=== PATIENT | male | born 1970 | race Caucasian/White ===

== ENCOUNTER 2017-01-29 22:00 | Emergency (ER) | payer MEDICAID ==
[~2017-01-29] VITALS: Ht 180.3 cm; Wt 88.5 kg
[2017-01-29 22:17] VITALS: BP 139/91
== END 2017-01-30 00:18 | disposition left against medical advice (07) ==
LOC: ER 22:00
DX: K08.89 Other specified disorders of teeth and supporting structures (principal); Z53.21 Procedure and treatment not carried out due to patient leaving prior to being seen by health care provider

== ENCOUNTER 2017-08-20 08:56 | Inpatient (IN) | payer MEDICAID, OTHER ==
[~2017-08-20] VITALS: Ht 182.9 cm; Wt 90.2 kg
[2017-08-20 09:41] LABS: Basophils # (auto) 0.1 uL; Basophils % (auto) 0.5 % (0.0-2.0); Eosinophils # (auto) 0.2 uL; Eosinophils % (auto) 1.4 % (0.0-7.0); Hematocrit 44.3 % (41.0-53.0); Lymphocytes # (auto) 1.8 uL; Lymphocytes % (auto) 15.1 % (10.0-50.0); Mean Corpuscular Hemoglobin 30.1 pg (28.0-32.0); Mean Corpuscular Hgb Conc. 33.9 g/dL (32.0-36.0); Mean Corpuscular Volume 88.7 fL (80.0-100.0); Monocytes # (auto) 0.7 uL; Monocytes % (auto) 6.3 % (0.0-12.0); Neutrophils # (auto) 9.2 uL; Neutrophils % (auto) 76.7 % (37.0-80.0); Nucleated Red Blood Cells % 0.1 %; Platelet Count (auto) 350 10^3/uL (140-450); Red Cell Distribution Width 13.6 % (11.8-14.3); White Blood Cell 11.9 10^3/uL (4.4-10.8)
[2017-08-20 09:46] LABS: Urine Bacteria NONE SEEN /hpf (None Seen); Urine Blood TRACE /uL (Negative); Urine Mucus FEW (None Seen); Urine Specific Gravity 1.028 (1.001-1.035); Urine WBC 3 /hpf (0 - 3)
[2017-08-20 10:05] LABS: Albumin 3.2 g/dL (3.4-5.0); Bilirubin, Total 0.3 mg/dL (0.2-1.0); Calcium 8.2 mg/dL (8.5-10.1); Potassium 3.9 mmol/L (3.5-5.1); Total Protein 6.9 g/dL (6.4-8.2)
[2017-08-20] MEDS ORDERED: SODIUM CHLORIDE 0.9% 1,000 ML IVB ONE (11:44)
[2017-08-20] MEDS ORDERED: ONDANSETRON HCL 4 MG/2 ML VIAL IV ONE (11:45)
[2017-08-20 12:19] LABS: INR 0.93 (0.9-1.15); Partial Thromboplastin Time 29.4 sec (23.78-33.04)
[2017-08-20] MEDS ORDERED: PANTOPRAZOLE 40 MG/10 ML VIAL IV ONE ×2 (19:15→19:30)
[2017-08-20] MEDS ORDERED: NALBUPHINE HCL 10 MG/1ml INJECTION IV ONE (19:15)
[2017-08-20] MEDS ORDERED: ACETAMINOPHEN 500 MG TAB PO PRN (19:30)
[2017-08-20] MEDS ORDERED: HYDROcodone-ACET 5/325MG TAB PO PRN (19:30)
[2017-08-20] MEDS ORDERED: cefTRIAXone 1GM/10ml IVPUSH 10 ML IV ONE (19:30)
[2017-08-20] MEDS ORDERED: MORPHINE SULF(PF) 0.5MG/ML 10ML VIAL IV PRN (19:30)
[2017-08-20] MEDS ORDERED: LORazepam 0.5 MG TAB PO PRN (19:30)
[2017-08-20] MEDS ORDERED: MORPHINE SULFATE 8mg/ml INJ SDV IV PRN (19:30)
[2017-08-20] MEDS ORDERED: NITROGLYCERIN 0.4 MG SL TAB SL PRN (19:30)
[2017-08-20] MEDS ORDERED: TEMAZEPAM 15 MG CAP PO PRN (19:30)
[2017-08-20 22:00] VITALS: BP 118/73
[2017-08-20 22:37] VITALS: BP 118/73
[2017-08-20] MEDS: metroNIDAZOLE 500MG/100ML 100 ML IV SCH (23:56)
[2017-08-21 01:01] LABS: Hematocrit 41.4 % (41.0-53.0); Hemoglobin 14.1 g/dL (13.5-17.5)
[2017-08-21] MEDS: NALBUPHINE HCL 10 MG/1ml INJECTION IV PRN ×4 (01:12→22:12)
[2017-08-21 05:28] LABS: Basophils # (auto) 0 uL; Basophils % (auto) 0.3 % (0.0-2.0); Eosinophils # (auto) 0.2 uL; Eosinophils % (auto) 1.7 % (0.0-7.0); Hematocrit 40.7 % (41.0-53.0); Hemoglobin 14.3 g/dL (13.5-17.5); Lymphocytes # (auto) 2.1 uL; Lymphocytes % (auto) 19.1 % (10.0-50.0); Mean Corpuscular Hemoglobin 31.3 pg (28.0-32.0); Mean Corpuscular Hgb Conc. 35.1 g/dL (32.0-36.0); Mean Corpuscular Volume 89.2 fL (80.0-100.0); Monocytes # (auto) 0.9 uL; Monocytes % (auto) 8.1 % (0.0-12.0); Neutrophils # (auto) 7.7 uL; Neutrophils % (auto) 70.8 % (37.0-80.0); Nucleated Red Blood Cells % 0.1 %; Platelet Count (auto) 318 10^3/uL (140-450); Red Blood Cells 4.56 10^6/uL (4.5-5.90); Red Cell Distribution Width 13.6 % (11.8-14.3); White Blood Cell 10.9 10^3/uL (4.4-10.8)
[2017-08-21 05:31] VITALS: BP 129/84
[2017-08-21 05:40] LABS: Cholesterol 100 mg/dL (< 200); HDL Cholesterol 23 mg/dL (40-59); LDL Cholesterol 62 mg/dL (< 100); Triglycerides 206 mg/dL (< 150)
[2017-08-21] MEDS: metroNIDAZOLE 500MG/100ML 100 ML IV SCH ×3 (06:04→18:03)
[2017-08-21] MEDS: PROMETHAZINE HCL 25 MG/ML 1ML IV PRN ×2 (08:44→14:49)
[2017-08-21] MEDS ORDERED: HYDROcodone-ACET 10/325MG TAB PO ONE (08:45)
[2017-08-21 09:00] VITALS: BP 126/76
[2017-08-21] MEDS: cefTRIAXone 1GM/10ml IVPUSH 10 ML IV SCH (09:42)
[2017-08-21] MEDS: PANTOPRAZOLE 40 MG TAB PO SCH ×2 (09:44→22:12)
[2017-08-21] MEDS: HYDROcodone-ACET 10/325MG TAB PO PRN ×3 (11:52→20:56)
[2017-08-21 12:13] LABS: Hematocrit 42.1 % (41.0-53.0); Hemoglobin 14.3 g/dL (13.5-17.5)
[2017-08-21 13:00] VITALS: BP 117/85
[2017-08-21] MEDS ORDERED: CARISOPRODOL 350 MG TAB PO ONE (16:45)
[2017-08-21 16:58] VITALS: BP 129/81
[2017-08-21 20:12] VITALS: BP 113/73
[2017-08-21 22:00] VITALS: BP 113/73
[2017-08-22] MEDS: metroNIDAZOLE 500MG/100ML 100 ML IV SCH ×4 (00:13→18:12)
[2017-08-22 05:26] VITALS: BP 148/83
[2017-08-22] MEDS: NALBUPHINE HCL 10 MG/1ml INJECTION IV PRN ×5 (05:27→21:03)
[2017-08-22 06:11] LABS: Basophils # (auto) 0.1 uL; Basophils % (auto) 0.7 % (0.0-2.0); Eosinophils # (auto) 0.3 uL; Eosinophils % (auto) 2.2 % (0.0-7.0); Hematocrit 40.8 % (41.0-53.0); Hemoglobin 14.3 g/dL (13.5-17.5); Lymphocytes # (auto) 2.1 uL; Lymphocytes % (auto) 18.2 % (10.0-50.0); Mean Corpuscular Hemoglobin 30.9 pg (28.0-32.0); Mean Corpuscular Volume 88.4 fL (80.0-100.0); Monocytes # (auto) 0.7 uL; Monocytes % (auto) 6.5 % (0.0-12.0); Neutrophils # (auto) 8.4 uL; Neutrophils % (auto) 72.4 % (37.0-80.0); Platelet Count (auto) 318 10^3/uL (140-450); Red Blood Cells 4.61 10^6/uL (4.5-5.90); Red Cell Distribution Width 13.4 % (11.8-14.3); White Blood Cell 11.6 10^3/uL (4.4-10.8)
[2017-08-22 06:44] LABS: Albumin 2.7 g/dL (3.4-5.0); BUN/Creatinine Ratio 10.3; Bilirubin, Total 0.4 mg/dL (0.2-1.0); Calcium 8.1 mg/dL (8.5-10.1); Potassium 3.5 mmol/L (3.5-5.1); Total Protein 6.2 g/dL (6.4-8.2)
[2017-08-22 08:00] VITALS: BP 144/91
[2017-08-22] MEDS: PANTOPRAZOLE 40 MG TAB PO SCH ×2 (10:03→21:03)
[2017-08-22] MEDS: cefTRIAXone 1GM/10ml IVPUSH 10 ML IV SCH (10:04)
[2017-08-22] MEDS: HYDROcodone-ACET 10/325MG TAB PO PRN ×2 (10:04→18:16)
[2017-08-22 17:00] VITALS: BP 129/79
[2017-08-22 20:00] VITALS: BP 128/83
[2017-08-22] MEDS ORDERED: MORPHINE SULFATE 4 MG/ML SYR/VIAL IV PRN (20:45)
[2017-08-22 22:25] VITALS: BP 128/83
[2017-08-23] MEDS: metroNIDAZOLE 500MG/100ML 100 ML IV SCH ×4 (00:16→17:55)
[2017-08-23] MEDS: HYDROcodone-ACET 10/325MG TAB PO PRN ×3 (02:23→17:04)
[2017-08-23] MEDS: NALBUPHINE HCL 10 MG/1ml INJECTION IV PRN ×3 (04:24→20:19)
[2017-08-23 04:37] VITALS: BP 161/86
[2017-08-23 06:38] LABS: Basophils # (auto) 0.1 uL; Basophils % (auto) 0.7 % (0.0-2.0); Eosinophils # (auto) 0.2 uL; Eosinophils % (auto) 2.6 % (0.0-7.0); Hematocrit 41.1 % (41.0-53.0); Hemoglobin 14.4 g/dL (13.5-17.5); Lymphocytes % (auto) 23.6 % (10.0-50.0); Mean Corpuscular Hemoglobin 30.8 pg (28.0-32.0); Mean Corpuscular Volume 88.1 fL (80.0-100.0); Monocytes # (auto) 0.7 uL; Neutrophils # (auto) 5.5 uL; Neutrophils % (auto) 65.1 % (37.0-80.0); Platelet Count (auto) 321 10^3/uL (140-450); Red Blood Cells 4.67 10^6/uL (4.5-5.90); Red Cell Distribution Width 13.4 % (11.8-14.3); White Blood Cell 8.4 10^3/uL (4.4-10.8)
[2017-08-23 07:27] LABS: Albumin 2.9 g/dL (3.4-5.0); Bilirubin, Total 0.2 mg/dL (0.2-1.0); Calcium 8.5 mg/dL (8.5-10.1); Potassium 3.9 mmol/L (3.5-5.1); Total Protein 6.5 g/dL (6.4-8.2)
[2017-08-23 08:00] VITALS: BP 121/86
[2017-08-23 09:00] VITALS: BP 121/86
[2017-08-23] MEDS: PANTOPRAZOLE 40 MG TAB PO SCH ×2 (10:03→22:01)
[2017-08-23] MEDS: cefTRIAXone 1GM/10ml IVPUSH 10 ML IV SCH (10:03)
[2017-08-23 13:00] VITALS: BP 122/75
[2017-08-23 17:00] VITALS: BP 147/86
[2017-08-23 22:00] VITALS: BP 118/70
[2017-08-24] MEDS: metroNIDAZOLE 500MG/100ML 100 ML IV SCH ×3 (00:01→13:51)
[2017-08-24] MEDS: NALBUPHINE HCL 10 MG/1ml INJECTION IV PRN ×2 (02:08→09:14)
[2017-08-24 05:00] VITALS: BP 137/78
[2017-08-24 06:16] LABS: INR 0.96 (0.9-1.15); Partial Thromboplastin Time 28.6 sec (23.78-33.04); Prothrombin Time 10.3 sec (9.27-12.13)
[2017-08-24] MEDS ORDERED: SODIUM CHLORIDE LOCK 10 ML ONE (08:22)
[2017-08-24] MEDS ORDERED: LIDOCAINE VISCOUS 2% 15ML UD ONE (08:22)
[2017-08-24] MEDS ORDERED: diphenhdrAMINE HCL 50 MG/1 ML VL ONE (08:23)
[2017-08-24 09:00] VITALS: BP 133/78
[2017-08-24] MEDS: cefTRIAXone 1GM/10ml IVPUSH 10 ML IV SCH (09:18)
[2017-08-24] MEDS: MIDAZOLAM HCL 5 MG/ML-1ML VIAL ONE ×2 (12:33→12:36)
[2017-08-24] MEDS: fentaNYL CITRATE 100 MCG/2 ML VL ONE ×2 (12:33→12:36)
[2017-08-24 12:43] LABS: Basophils # (auto) 0 uL; Basophils % (auto) 0.5 % (0.0-2.0); Eosinophils # (auto) 0.2 uL; Eosinophils % (auto) 2.1 % (0.0-7.0); Hematocrit 43.3 % (41.0-53.0); Lymphocytes # (auto) 1.9 uL; Lymphocytes % (auto) 21.7 % (10.0-50.0); Mean Corpuscular Hemoglobin 30.8 pg (28.0-32.0); Mean Corpuscular Hgb Conc. 34.7 g/dL (32.0-36.0); Mean Corpuscular Volume 88.8 fL (80.0-100.0); Monocytes # (auto) 0.5 uL; Monocytes % (auto) 5.6 % (0.0-12.0); Neutrophils # (auto) 6.2 uL; Neutrophils % (auto) 70.1 % (37.0-80.0); Platelet Count (auto) 371 10^3/uL (140-450); Red Blood Cells 4.87 10^6/uL (4.5-5.90); Red Cell Distribution Width 13.5 % (11.8-14.3); White Blood Cell 8.8 10^3/uL (4.4-10.8)
[2017-08-24 13:00] VITALS: BP 135/92
[2017-08-24] MEDS: PANTOPRAZOLE 40 MG TAB PO SCH (13:21)
[2017-08-24 13:24] LABS: BUN/Creatinine Ratio 13.5; Calcium 8.8 mg/dL (8.5-10.1)
[2017-08-24 14:25] VITALS: BP 135/92
== END 2017-08-24 16:40 | disposition home or self-care (01) | DRG 241 ==
LOC: ER 08:56 → TELE 08:57 → TELE-WESTW 22:00
PROVIDERS: ADMIT Internal Medicine; ATTEND Internal Medicine
PROC: 0DB68ZX Excision of Stomach, Via Natural or Artificial Opening Endoscopic, Diagnostic (ICD-10-PCS; principal; 2017-08-24 12:30)
DX: K29.71 Gastritis, unspecified, with bleeding (principal); E44.0 Moderate protein-calorie malnutrition; K27.4 Chronic or unspecified peptic ulcer, site unspecified, with hemorrhage; B19.20 Unspecified viral hepatitis C without hepatic coma; D72.829 Elevated white blood cell count, unspecified; E78.5 Hyperlipidemia, unspecified; F17.210 Nicotine dependence, cigarettes, uncomplicated; K40.20 Bilateral inguinal hernia, without obstruction or gangrene, not specified as recurrent; F41.9 Anxiety disorder, unspecified; G47.00 Insomnia, unspecified; K29.81 Duodenitis with bleeding; Z68.27 Body mass index [BMI] 27.0-27.9, adult; Z82.49 Family history of ischemic heart disease and other diseases of the circulatory system
CPT/HCPCS: 36415; 71045; 71046; 74176; 80048; 80053; 80061; 81001; 82150; 82270; 82378; 83690; 83735; 85014; 85018; 85025; 85045; 85610; 85652; 85730; 86141; 86850; 86900; 86901; 87493; 94761; 96361; 96374; 96375; 96376; C9113; J2250; J2405; J3490

== ENCOUNTER 2022-03-09 06:38 | Inpatient (IN) | payer MEDICAID ==
[~2022-03-09] VITALS: Ht 180.3 cm; Wt 102.0 kg
[2022-03-09 07:27] LABS: Basophils # (auto) 0.1 10 ^3/uL (0-0.2); Basophils % (auto) 0.9 % (0.0-2.0); Eosinophils # (auto) 0.3 10 ^3/uL (0-0.8); Eosinophils % (auto) 2.3 % (0.0-7.0); Hematocrit 37.4 % (41.0-53.0); Hemoglobin 12.9 g/dL (13.5-17.5); Lymphocytes # (auto) 1.2 10 ^3/uL (0.4-5.4); Lymphocytes % (auto) 9.6 % (10.0-50.0); Mean Corpuscular Hemoglobin 29.7 pg (28.0-32.0); Mean Corpuscular Hgb Conc. 34.5 g/dL (32.0-36.0); Mean Corpuscular Volume 86.2 fL (80.0-100.0); Monocytes # (auto) 0.7 10 ^3/uL (0-1.3); Monocytes % (auto) 5.8 % (0.0-12.0); Neutrophils # (auto) 10.4 10 ^3/uL (1.6-8.6); Neutrophils % (auto) 81.4 % (37.0-80.0); Red Blood Cells 4.34 10^6/uL (4.5-5.90); Red Cell Distribution Width 13.4 % (11.8-14.3); White Blood Cell 12.8 10^3/uL (4.4-10.8)
[2022-03-09 07:44] LABS: INR 0.99 (0.9-1.15); Partial Thromboplastin Time 38.4 sec (24.6-33.4)
[2022-03-09 08:04] LABS: Albumin 3.2 g/dL (3.4-5.0); BUN/Creatinine Ratio 9.8; Calcium 9.3 mg/dL (8.5-10.1); Potassium 4.4 mmol/L (3.5-5.1)
[2022-03-09 08:06] LABS: Bilirubin, Total 0.6 mg/dL (0.2-1.0); Total Protein 7.7 g/dL (6.4-8.2)
[2022-03-09] MEDS ORDERED: IOHEXOL 300 MG/ML 100ML BOTTLE IJ ONE (08:49)
[2022-03-09 09:01] LABS: Magnesium 2.1 mg/dL (1.6-2.6)
[2022-03-09] MEDS ORDERED: cefTRIAXone 1GM/50ML D5W 50 ML IV ONE (13:30)
[2022-03-09] MEDS ORDERED: metroNIDAZOLE 500MG/100ML 100 ML IV ONE (13:30)
[2022-03-09] MEDS ORDERED: NITROGLYCERIN 0.4 MG SL TAB SL PRN (14:00)
[2022-03-09] MEDS ORDERED: ALBUTEROL SULF 2.5 MG/0.5ML(0.5%) NEB SOLN NEB PRN (14:00)
[2022-03-09] MEDS ORDERED: MORPHINE SULFATE INJ 2 MG/ml SYRG IV PRN (14:00)
[2022-03-09] MEDS ORDERED: ACETAMINOPHEN 325 MG TAB PO PRN (14:00)
[2022-03-09] MEDS: HYDROcodone-ACET 5/325MG TAB PO PRN (15:41)
[2022-03-09] MEDS: ALBUTEROL MEDNEB 2.5 mg/3ml NEB NEB PRN (21:17)
[2022-03-09] MEDS: MORPHINE SULFATE INJ 2 MG/ml SYRG IV PRN (23:54)
[2022-03-10 04:54] LABS: Basophils # (auto) 0 10 ^3/uL (0-0.2); Basophils % (auto) 0.4 % (0.0-2.0); Eosinophils # (auto) 0.2 10 ^3/uL (0-0.8); Eosinophils % (auto) 1.4 % (0.0-7.0); Hematocrit 36.3 % (41.0-53.0); Hemoglobin 12.8 g/dL (13.5-17.5); Lymphocytes # (auto) 1.3 10 ^3/uL (0.4-5.4); Lymphocytes % (auto) 12.1 % (10.0-50.0); Mean Corpuscular Hemoglobin 30.3 pg (28.0-32.0); Mean Corpuscular Hgb Conc. 35.3 g/dL (32.0-36.0); Mean Corpuscular Volume 85.8 fL (80.0-100.0); Monocytes # (auto) 0.6 10 ^3/uL (0-1.3); Neutrophils # (auto) 8.9 10 ^3/uL (1.6-8.6); Neutrophils % (auto) 81.1 % (37.0-80.0); Nucleated Red Blood Cells % 0.1 %; Red Blood Cells 4.23 10^6/uL (4.5-5.90); Red Cell Distribution Width 13.7 % (11.8-14.3)
[2022-03-10 05:10] LABS: Calcium 8.9 mg/dL (8.5-10.1); Potassium 4.1 mmol/L (3.5-5.1)
[2022-03-10 05:12] LABS: BUN/Creatinine Ratio 11.3
[2022-03-10 05:14] LABS: Bilirubin, Total 0.6 mg/dL (0.2-1.0); Total Protein 7.2 g/dL (6.4-8.2)
[2022-03-10] MEDS: MORPHINE SULFATE INJ 2 MG/ml SYRG IV PRN ×2 (07:10→16:56)
[2022-03-10] MEDS: HYDROcodone-ACET 5/325MG TAB PO PRN (09:40)
[2022-03-10] MEDS: ENOXAPARIN SOD 40 MG/0.4 ML SYRINGE SC SCH (09:40)
[2022-03-10] MEDS: PANTOPRAZOLE 40 MG TAB PO SCH (09:41)
[2022-03-10] MEDS: AZITHROMYCIN 500MG/ 250ML 250 ML IV SCH (10:46)
[2022-03-10] MEDS: HYDROmorphone HCL 2 MG/ML VL/or syr IV PRN ×2 (12:57→23:29)
[2022-03-10 13:53] VITALS: BP 141/70
[2022-03-10 17:00] VITALS: BP 126/73
[2022-03-10 17:12] VITALS: BP 136/69
[2022-03-10] MEDS ORDERED: LOSA-69 PO (17:27)
[2022-03-10 22:00] VITALS: BP 149/94
[2022-03-11] MEDS: MORPHINE SULFATE INJ 2 MG/ml SYRG IV PRN (01:50)
[2022-03-11 05:00] VITALS: BP 132/91
[2022-03-11 07:50] VITALS: BP 157/82
[2022-03-11] MEDS ORDERED: MEPERIDINE HCL (25 MG/ML) 1ML VIAL ONE (08:10)
[2022-03-11] MEDS ORDERED: ROCURONIUM 10MG/ML 10ML VIAL IV ONE (08:11)
[2022-03-11] MEDS ORDERED: DexAMETHasone SOD PHOS 10MG/1ML VIAL INJ ONE (08:11)
[2022-03-11] MEDS ORDERED: ONDANSETRON HCL 4 MG/2 ML VIAL ONE (08:11)
[2022-03-11] MEDS ORDERED: GLYCOPYRROLATE 0.2 MG/ML 1ML VIAL ONE (08:11)
[2022-03-11] MEDS ORDERED: fentaNYL CITRATE 100 MCG/2 ML VL ONE (08:11)
[2022-03-11] MEDS ORDERED: MIDAZOLAM HCL 2MG/2ML 2ml VIAL (1mg/ml) ONE (08:11)
[2022-03-11] MEDS ORDERED: NEOSTIGMINE 1 MG/ML INJ (10mg/10ML VIAL) ONE (08:11)
[2022-03-11] MEDS ORDERED: SODIUM CHLORIDE LOCK 10 ML ONE (08:11)
[2022-03-11] MEDS ORDERED: ceFAZolin 1GM/50ML 100 ML IV ONE (08:36)
[2022-03-11] MEDS ORDERED: BUPIVACAINE 0.25% INJ 50ML VIAL ONE (08:43)
[2022-03-11] MEDS ORDERED: ALBUTEROL SULF 2.5 MG/0.5ML(0.5%) NEB SOLN NEB ONE (09:00)
[2022-03-11] MEDS ORDERED: IPRATROPIUM BROM 0.5 MG/2.5ML INH SOL NEB ONE (09:00)
[2022-03-11] MEDS ORDERED: HYDROmorphone HCL 2 MG/ML VL/or syr IV PRN ×2 (09:00)
[2022-03-11] MEDS ORDERED: MORPHINE SULFATE INJ 2 MG/ml SYRG IV PRN (09:00)
[2022-03-11] MEDS ORDERED: METOCLOPRAMIDE HCL 5MG/ml INJ 2ml VIAL IV PRN (09:00)
[2022-03-11] MEDS: AZITHROMYCIN 500MG/ 250ML 250 ML IV SCH ×2 (10:00→14:55)
[2022-03-11] MEDS: ENOXAPARIN SOD 40 MG/0.4 ML SYRINGE SC SCH (10:00)
[2022-03-11] MEDS: PANTOPRAZOLE 40 MG TAB PO SCH ×2 (10:00→14:56)
[2022-03-11] MEDS ORDERED: POVIDONE IODINE 10 % TOPICAL OINT 30GM TOP ONE (10:32)
[2022-03-11] MEDS ORDERED: HYDROmorphone HCL 2 MG/ML VL/or syr IV ONE ×2 (11:13→11:23)
[2022-03-11] MEDS: HYDROmorphone HCL 2 MG/ML VL/or syr IV PRN ×2 (13:39→21:03)
[2022-03-11 14:00] VITALS: BP 134/93
[2022-03-11 17:00] VITALS: BP 107/86
[2022-03-11 22:00] VITALS: BP 118/68
[2022-03-12] MEDS: HYDROmorphone HCL 2 MG/ML VL/or syr IV PRN ×5 (01:52→23:15)
[2022-03-12] MEDS ORDERED: HYDROmorphone HCL 2 MG/ML VL/or syr IV ONE (04:10)
[2022-03-12 05:00] VITALS: BP 134/87
[2022-03-12] MEDS: PANTOPRAZOLE 40 MG TAB PO SCH (09:42)
[2022-03-12] MEDS: AZITHROMYCIN 500MG/ 250ML 250 ML IV SCH (09:43)
[2022-03-12] MEDS: HYDROcodone-ACET 5/325MG TAB PO PRN ×3 (09:43→19:50)
[2022-03-12] MEDS: ENOXAPARIN SOD 40 MG/0.4 ML SYRINGE SC SCH (09:50)
[2022-03-12 10:05] VITALS: BP 136/71
[2022-03-12] MEDS: ALBUTEROL MEDNEB 2.5 mg/3ml NEB NEB PRN (10:22)
[2022-03-12 13:00] VITALS: BP 118/71
[2022-03-12 16:30] VITALS: BP 156/79
[2022-03-12 22:00] VITALS: BP 139/80
[2022-03-13] MEDS: HYDROcodone-ACET 5/325MG TAB PO PRN ×3 (01:34→14:44)
[2022-03-13] MEDS: HYDROmorphone HCL 2 MG/ML VL/or syr IV PRN ×3 (03:35→12:15)
[2022-03-13 09:00] VITALS: BP 158/115
[2022-03-13] MEDS: PANTOPRAZOLE 40 MG TAB PO SCH (09:33)
[2022-03-13] MEDS: AZITHROMYCIN 500MG/ 250ML 250 ML IV SCH (09:33)
[2022-03-13] MEDS: ENOXAPARIN SOD 40 MG/0.4 ML SYRINGE SC SCH (09:34)
[2022-03-13] MEDS: ALBUTEROL MEDNEB 2.5 mg/3ml NEB NEB PRN (12:14)
[2022-03-13 13:00] VITALS: BP 146/85
[2022-03-13] MEDS ORDERED: HYDR-4902 PO (13:08)
[2022-03-13 14:00] VITALS: BP 146/85
== END 2022-03-13 16:12 | disposition home or self-care (01) | DRG 227 ==
LOC: ER 06:38 → TELE 13:48 → TELE-WESTW 03-10 15:20
PROVIDERS: ADMIT Nurse Practitioner; ATTEND Nurse Practitioner
PROC: 0WQF0ZZ Repair Abdominal Wall, Open Approach (ICD-10-PCS; principal; 2022-03-11 09:18)
DX: K43.6 Other and unspecified ventral hernia with obstruction, without gangrene (principal); J18.9 Pneumonia, unspecified organism; K40.20 Bilateral inguinal hernia, without obstruction or gangrene, not specified as recurrent; Z20.822 Contact with and (suspected) exposure to COVID-19; F17.210 Nicotine dependence, cigarettes, uncomplicated; I10 Essential (primary) hypertension; K76.0 Fatty (change of) liver, not elsewhere classified; J45.909 Unspecified asthma, uncomplicated; R91.1 Solitary pulmonary nodule
CPT/HCPCS: 36415; 71045; 74177; 80053; 83605; 83690; 83735; 83880; 84484; 85025; 85610; 85730; 86850; 86900; 86901; 87040; 87426; 88302; 93005; 94640; 96365; 96367; 96372; 96375; G0378; J0690; J0696; J1100; J2250; J2405; J3490

== ENCOUNTER 2024-06-12 01:16 | Emergency (ER) | payer MEDICAID ==
[~2024-06-12] VITALS: Ht 180.3 cm; Wt 90.9 kg
[~2024-06-12 01:16] MED LIST: HYDR-4902 PO; LOSA-534 PO
[2024-06-12] MEDS ORDERED: CLON0.2T PO (01:45)
--- NOTE | 2024-06-12 01:46 | ED.PDOC ---
History of Present Illness HPI Comments This patient is a 54-year-old male who has been seen at this facility multiple times for fentanyl overdose who arrives tonight status post fentanyl overdose. EMS stated they arrived with the scene to the patient was unresponsive. Multiple rounds of Narcan and Zofran were dispensed. Patient responded. At ti me of arrival, patient was stable and non combative. Patient was hypertensive on arrival. Chief Complaint: Overdose Time Seen by MD: 01:24 Reviewed Notes: Nurses Notes, Appeals Coordinator Notes Allergies: Coded Allergies: NO KNOWN ALLERGIES (Unverified , 01/29/17) Home Meds Active Scripts Hydrocodone-Acetaminophen (Hydrocodone Bitartrate/AC 5-325 mg) 1 Tab Tab, 1 TAB PO Q4HP PRN for 5 Days, #25 TAB Prov:AMIRA MERA FILENET DEVELOPER 03/13/22 Reported Medications Losartan Potassium (Losartan Potassium) 50 Mg Tab, 1 TAB PO BID 03/10/22 Information Source: Patient, Emergency Med Personnel Mode of Arrival: EMS Severity: Moderate Timing: Minutes Duration: Hours Prehospital treatment: Treatment Past Medical History PAST MEDICAL HISTORY: HTN, Liver Surgical History: Denies all surgeries Family History Family History: No family hx of HTN Social History Smoker: Cigarettes, Less Than 1 Pack/Day Alcohol: Occasionally Drugs: Marijuana, Methamphetamine, Other (Fentanyl) Lives In: Home Constitutional: denies: chills, diaphoresis, fatigue, fever, malaise, sweats, weakness, others EENTM: denies: blurred vision, double vision, ear bleeding, ear discharge, ear drainage, ear pain, ear ringing, eye pain, eye redness, hearing loss, mouth pain, mouth swelling, nasal discharge, nose bleeding, nose congestion, nose pain, photophobia, tearing, throat pain, throat swelling, voice changes, others Respiratory: denies: cough, hemoptysis, orthopnea, SOB at rest, shortness of breath, SOB with excertion, stridor, wheezing, others Cardiovascular: denies: chest pain, dizzy spells, diaphoresis, Dyspnea on exertion, edema, irregular heart beat, left arm pain, lightheadedness, palpitations, PND, syncope, others Gastrointestinal: denies: abdomen distended, abdominal pain, blood streaked bowels, constipated, diarrhea, dysphagia, difficulty swallowing, hematemesis, melena, nausea, poor appetite, poor fluid intake, rectal bleeding, rectal pain, vomiting, others Genitourinary: denies: burning, dysuria, flank pain, frequency, hematuria, incontinence, penile discharge, penile sore, pain, testicle pain, testicle swelling, urgency, others Neurological: denies: dizziness, fainting, headache, left sided numbness, left sided weakness, numbness, paresthesia, pre-existing deficit, right sided numbness, right sided weakness, seizure, speech problems, tingling, tremors, weakness, others Musculoskeletal: denies: back pain, gout, joint pain, joint swelling, muscle p ain, muscle stiffness, neck pain, others Integumetry: denies: bruises, change in color, change in hair/nails, dryness, laceration, lesions, lumps, rash, wounds, others Allergic/Immunocompromised: denies: Difficulty Healing, Frequent Infections, Hives, Itching, others Hematologic/Lymphatic: denies: anemia, blood clots, easy bleeding, easy bruising, swollen glands, others Endocrine: denies: excessive hunger, excessive sweating, excessive thirst, excessive urination, flushing, intolerance to cold, intolerance to heat, unexplained weight gain, unexplained weight loss, others Psychiatric: denies: anxiety, bipolar disorder, depression, hopeless, panic disorder, schizophrenia, sleepless, suicidal, others Physical Exam General Appearance: No Apparent Distress (Patient was in no distress at time of evaluation.), Normal HEENT: Normal ENT Inspection, Pharynx Normal, TMs Normal Neck: Full Range of Motion, Non-Tender, Normal, Normal Inspection Respiratory: Chest Non-Tender, Lungs Clear, No Accessory Muscle Use, No Respiratory Distress, Normal Breath Sounds Cardiovascular: No Edema, No JVD, No Murmur, No Gallop, Normal Peripheral Pulses, Regular Rate/Rhythm Breast Exam: Deferred Gastrointestinal: No Organomegaly, Non Tender, No Pulsatile Mass, Normal Bowel Sounds, Soft Genitalia: Deferred Pelvic: Deferred Rectal: Deferred Extremities: NOT DONE Neurologic: Alert, No Motor Deficits, No Sensory Deficits Cerebellar Function: NOT DONE Reflexes: NOT DONE Skin: Dry, Normal Color, Warm Lymphatic: No Adenopathy Was a procedure done? Was a procedure done?: No Differential Dx Considerations may include: Fentanyl overdose, hypertension X-Ray, Labs, Meds, VS Vital Signs Date Time Temp Pulse Resp B/P (MAP) Pulse Ox O2 Delivery O2 Flow Rate FiO2 06/12/24 01:25 98.2 118 20 183/108 (133) 95 98.2 X-Ray, Labs, Meds, VS Comment Patient received fluids and medication to address his blood pressure concerns. Patient's blood pressure will be allowed to returned to an acceptable range prior to discharge. Patient has been advised to cease fentanyl use immediately and follow up with a support groups such as narcotics anonymous. This is a, advised patient to follow up with the primary care provider for discussions related to possible hypertensive concerns. Time of 1ST Reevaluation: Reevaluation 1ST: Improved Consultation: PCP, Other (Drug rehab) Patient Education/Counseling: Diagnosis, Treatment Family Education/Counseling: Diagnosis, Treatment Departure 1 Departure Time of Disposition: Impression: Primary Impression: Overdose of fentanyl Additional Impression: Hypertension Disposition: HOME / SELF CARE / HOMELESS Condition: Stable Additional Instructions: Advised patient utilize medication as needed for symptomatic blood pressure relief. Advised patient to cease fentanyl use immediately and follow up with a support programs such as narcotics anonymous. e-Prescriptions Clonidine Hydrochloride (Clonidine Hcl) 0.2 Mg Tab 1 TAB PO BID, #20 TAB 0 Refills Prov: DEVORAH USAREZ PAC 06/12/24 Discharged With: Self, Friend Critical Care Note Critical Care Time?: No Stability Stability form required: No Heart Score Heart Score: Heart Score Response (Comments) Value History N/A 0 EKG N/A 0 Age N/A 0 Risk Factors N/A 0 Troponin N/A 0 Total 0 DEVORAH SUAREZ PAC Jun 12, 2024 01:46
[2024-06-12 01:55] VITALS: PULSE 100; RESP 13; O2SAT 88
[2024-06-12] MEDS: SODIUM CHLORIDE 0.9% 1,000 ML IV ONE (01:55)
[2024-06-12] MEDS: cloNIDine HCL 0.1 MG TAB PO ONE (01:55)
[2024-06-12] MEDS: ONDANSETRON ODT 4 MG TAB PO ONE (01:55)
[2024-06-12 05:47] VITALS: BP 149/94; PULSE 90; RESP 12; TEMP 98.7; O2SAT 98
== END 2024-06-12 05:59 | disposition home or self-care (01) ==
LOC: EDBD 01:16 → ER 01:16
DX: T40.411A Poisoning by fentanyl or fentanyl analogs, accidental (unintentional), initial encounter (principal); I10 Essential (primary) hypertension; F17.210 Nicotine dependence, cigarettes, uncomplicated; Z79.899 Other long term (current) drug therapy; Y92.89 Other specified places as the place of occurrence of the external cause
CPT/HCPCS: 82947; 96360; 99283; J7030; Q0162

== ENCOUNTER 2024-11-05 19:31 | Inpatient (IN) | payer MEDICAID ==
[~2024-11-05] VITALS: Ht 180.3 cm; Wt 96.5 kg
[~2024-11-05 19:31] MED LIST changes: +CLON0.2T PO
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
[2024-11-05 21:24] LABS: Hematocrit 44.7 % (41.0-53.0); Hemoglobin 16.0 g/dL (13.5-17.5); Mean Corpuscular Hemoglobin 31.7 pg (28.0-32.0); Mean Corpuscular Volume 88.6 fL (80.0-100.0); Nucleated Red Blood Cells % 0.0 %
[2024-11-05] MEDS: cefTRIAXone SOD 1,000 MG VL IM ONE (21:32)
[2024-11-05] MEDS: OXYCODONE W/ ACETAMINOPHEN 5/325MG TABLET PO ONE (21:33)
[2024-11-05] MEDS: LIDOCAINE 1% HCL (LOCAL ANESTH.) INJ 20ML MDV ONE (21:36)
[2024-11-05 21:41] LABS: Alanine Aminotransferase 13 U/L (7-40); Albumin 4.5 g/dL (3.2-4.8); Alkaline Phosphatase 96 U/L (46-116); Anion Gap 8 (5-15); BUN/Creatinine Ratio 8.4 (10.0-20.0); Bilirubin, Total 0.9 mg/dL (0.2-1.0); Blood Urea Nitrogen 15 mg/dL (9-23); Calcium 9.4 mg/dL (8.7-10.4); Carbon Dioxide 26 mmol/L (20-31); Chloride 102 mmol/L (98-107); Sodium 136 mmol/L (136-145); Total Protein 7.8 g/dL (5.7-8.2)
[2024-11-05 21:42] LABS: Glucose 137 mg/dL (74-106); Potassium 3.5 mmol/L (3.5-5.1)
[2024-11-05] MEDS ORDERED: VANCOMYCIN PER PHARMACY 0 MG IV SCH (23:45)
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
--- NOTE | 2024-11-06 00:09 | DVH ---
Exam: US RIGHT LOWER EXTREMITY ULTRASOU Clinical History: cellulitis Comparison: None Technique: Targeted sonographic evaluation of the soft tissues at the lateral aspect of the right lower leg was performed utilizing grayscale and color Doppler imaging. Findings/Impression: No sonographic abnormality is identified in the area of clinical concern at the lateral aspect of the right lower leg/calf with no evidence of mass or fluid collection.
--- NOTE | 2024-11-06 00:11 | DVH ---
CHEST RADIOGRAPH Indication: sob Technique: Single frontal view of the chest was obtained COMPARISON: CXRP on DOS: 03/09/22 FINDINGS: Lines and Tubes: None Lungs: Clear Pleura: No pleural effusion or pneumothorax. Cardiomediastinal contours: Heart size is within normal limits. Pulmonary arteries appear enlarged. IMPRESSION: No acute abnormality identified. Pulmonary arteries appear enlarged.
[2024-11-06] MEDS ORDERED: ACETAMINOPHEN 325 MG TAB PO PRN (00:15)
[2024-11-06] MEDS: VANCOMYCIN 1GM/250ML KIT 250 ML IV SCH (00:29)
[2024-11-06] MEDS: SODIUM CHLORIDE 0.9% 1,000 ML IV ONE ×2 (02:34→03:53)
[2024-11-06] MEDS: HYDROcodone-ACET 5/325MG TAB PO PRN (03:53)
[2024-11-06] MEDS: PIPERACILLIN-TAZOB 3.375GM 100 ML IV ONE (05:12)
[2024-11-06 05:43] LABS: Hematocrit 42.8 % (41.0-53.0); Hemoglobin 15.5 g/dL (13.5-17.5); Mean Corpuscular Hemoglobin 32.0 pg (28.0-32.0); Mean Corpuscular Volume 88.3 fL (80.0-100.0); Nucleated Red Blood Cells % 0.0 %
[2024-11-06 06:02] LABS: Alanine Aminotransferase 14 U/L (7-40); Albumin 4.5 g/dL (3.2-4.8); Alkaline Phosphatase 98 U/L (46-116); Anion Gap 8 (5-15); BUN/Creatinine Ratio 11.4 (10.0-20.0); Blood Urea Nitrogen 20 mg/dL (9-23); Calcium 9.1 mg/dL (8.7-10.4); Carbon Dioxide 28 mmol/L (20-31); Chloride 101 mmol/L (98-107); Sodium 137 mmol/L (136-145); Total Protein 7.6 g/dL (5.7-8.2)
[2024-11-06 06:03] LABS: Bilirubin, Total 0.5 mg/dL (0.2-1.0); Glucose 112 mg/dL (74-106); Potassium 3.5 mmol/L (3.5-5.1)
[2024-11-06 06:42] VITALS: BP 146/81; PULSE 87; RESP 18; TEMP 97.6; O2SAT 96
[2024-11-06 07:35] LABS: COVID19 ANTIGEN SOFIA FIA NEGATIVE (NEGATIVE)
[2024-11-06 07:47] LABS: Urine Protein, UAD 1+ (Negative); Urine WBC Clumps PRESENT /hpf (None Seen)
[2024-11-06 07:49] LABS: Cannabinoid Screen, Urine Pos (NEGATIVE); Opiate Scree,Urine Neg (NEGATIVE)
[2024-11-06 07:52] LABS: Amphetamine Screen, Urine Pos (NEGATIVE); Barbiturate Scree,Urine Neg (NEGATIVE); Benzodiazephine Screen, Urine Neg (NEGATIVE); Cocaine Screen, Urine Neg (NEGATIVE); Phencyclidine Screen, Urine Neg (NEGATIVE)
[2024-11-06] MEDS ORDERED: ENOXAPARIN SOD 40 MG/0.4 ML SYRINGE SC SCH (10:00)
[2024-11-06] MEDS ORDERED: PIPERACILLIN-TAZOB 3.375GM 100 ML IV SCH (14:00)
--- NOTE | 2024-11-06 19:51 | DVHDS2 ---
Discharge Summary Date of Admission Nov 05, 2024 at 23:30 Date of Discharge: Nov 06, 2024 Labs/Diagnostic Data: Laboratory Results Test 11/06/24 07:20 11/06/24 06:26 11/06/24 05:05 11/05/24 21:34 Urine Color Yellow (Yellow) Urine Clarity Clear (Clear) Urine pH 5.5 (5.0-9.0) Urine Specific [place] 1.024 (1.001-1.035) Urine Protein 1+ (Negative) Urine Ketones Negative (Negative) Urine Blood 1+ /uL (Negative) Urine Nitrite Negative (Negative) Urine Bilirubin Negative (Negative) Urine Urobilinogen Normal mg/dL (Negative) Urine Leukocyte Esterase 1+ /uL (Negative) Urine RBC 2 /hpf (0 - 3) Urine WBC Clumps Present /hpf (None Seen) Urine Microscopic WBC 30 /HPF (0-3) Urine Squamous Epithelial Cells Few /hpf (<5) Urine Bacteria Few /hpf (None Seen) Urine Glucose Normal mg/dL (Normal) Urine Opiates Screen Neg (NEGATIVE) Urine Fentanyl Screen Pos (NEGATIVE) Urine Barbiturates Screen Neg (NEGATIVE) Urine Phencyclidine Screen Neg (NEGATIVE) Urine Amphetamines Screen Pos (NEGATIVE) Urine Benzodiazepines Screen Neg (NEGATIVE) Urine Cocaine Screen Neg (NEGATIVE) Urine Cannabinoids Screen Pos (NEGATIVE) Influenza Type A Antigen Negative (Negative) Influenza Type B Antigen Negative (Negative) SARS-CoV-2 Antigen (Rapid) Negative (NEGATIVE) White Blood Count 17.2 10^3/uL (4.4-10.8) Red Blood Count 4.85 10^6/uL (4.5-5.90) Hemoglobin 15.5 g/dL (13.5-17.5) Hematocrit 42.8 % (41.0-53.0) Mean Corpuscular Volume 88.3 fL (80.0-100.0) Mean Corpuscular Hemoglobin 32.0 pg (28.0-32.0) Mean Corpuscular Hemoglobin Concent 36.3 g/dL (32.0-36.0) Red Cell Distribution Width 14.3 % (11.8-14.3) Platelet Count 229 10^3/uL (140-450) Mean Platelet Volume 8.0 fL (6.9-10.8) Neutrophils (%) (Auto) 87.0 % (37.0-80.0) Lymphocytes (%) (Auto) 8.5 % (10.0-50.0) Monocytes (%) (Auto) 3.5 % (0.0-12.0) Eosinophils (%) (Auto) 0.8 % (0.0-7.0) Basophils (%) (Auto) 0.2 % (0.0-2.0) Neutrophils # (Auto) 15.0 10 ^3/uL (1.6-8.6) Lymphocytes # (Auto) 1.5 10 ^3/uL (0.4-5.4) Monocytes # (Auto) 0.6 10 ^3/uL (0-1.3) Eosinophils # (Auto) 0.1 10 ^3/uL (0-0.8) Basophils # (Auto) 0 10 ^3/uL (0-0.2) Nucleated Red Blood Cells 0.0 % Sodium Level 137 mmol/L (136-145) Potassium Level 3.5 mmol/L (3.5-5.1) Chloride Level 101 mmol/L (98-107) Carbon Dioxide Level 28 mmol/L (20-31) Anion Gap 8 (5-15) Blood Urea Nitrogen 20 mg/dL (9-23) Creatinine 1.76 mg/dL (0.700-1.30) Glomerular Filtration Rate Calc 46 mL/min (>90) BUN/Creatinine Ratio 11.4 (10.0-20.0) Serum Glucose 112 mg/dL (74-106) Calcium Level 9.1 mg/dL (8.7-10.4) Total Bilirubin 0.5 mg/dL (0.2-1.0) Aspartate Amino Transferase (AST) 21 U/L (13-40) Alanine Aminotransferase (ALT) 14 U/L (7-40) Alkaline Phosphatase 98 U/L (46-116) Total Protein 7.6 g/dL (5.7-8.2) Albumin 4.5 g/dL (3.2-4.8) Lactic Acid Level 2.0 mmol/L (0.4-2.0) Test 11/05/24 21:00 B-Type Natriuretic Peptide 70.10 pg/mL (0-100) Thyroid Stimulating Hormone (TSH) 1.64 uIU/mL (0.55-4.78) Other Laboratory Tests 11/06/24 05:05 Brief Hx & Hospital Course: Patient is a 54-year-old male with past medical history of hypertension, untreated hepatitis-C, who comes in due to right leg pain and swelling. According to the patient, yesterday on 11/04/2024 around 4 5:00 p.m. he started experiencing right lower extremity pain, when he noticed he had a bug bite by an unknown insect on his right calf. He describes lower extremity pain as 8/10 in intensity constant and sore with radiation to groin. Pain was associated with fever, chills and a headache which is what prompted this visit to the hospital. On review of systems patient is complaining of fever, chills, shortness of breath on exertion and cold sweats. On physical exam patient is noted to have erythema, swelling and tenderness to palpation along the right lower extremity extending up to the knee. Patient unable to be seen, patient was informed of risks of leaving AMA. Patient accepts all risk, including , signed AMA form and has left AMA. Right lower extremity insect bite Cellulitis possibly due to above Sepsis due to above NIKOS, likely hemodynamically mediated Essential hypertension Untreated hepatitis-C Condition at Discharge: Undetermined Final Diagnosis/Problems List Right lower extremity insect bite Cellulitis possibly due to above Sepsis due to above NIKOS, likely hemodynamically mediated Essential hypertension Untreated hepatitis-C Discharge Disposition: AMA Discharge Instruct/Medications Scheduled Clonidine Hydrochloride (Clonidine Hcl), 1 TAB PO BID Losartan Potassium (Losartan Potassium), 1 TAB PO BID, (Reported) Scheduled PRN Hydrocodone-Acetaminophen (Hydrocodone Bitartrate/AC 5-325 mg), 1 TAB PO Q4HP PRN Discharge Statement: "Patient was advised to return to the ER or call 911 if any headaches, dizziness, shortness of breath, chest pain, abdominal pain, bleeding, fevers, or worsening of medical condition. Patient was counseled about treatment plan, medications, possible side effects, patientverbalized understanding. All questions were answered to the best of my ability. This discharge took greater then 30 minutes in planning, reviewing documentation, counseling the patient, and discussing with other team members." ASSESSMENT ASSESSMENT Assessment Date of Service: Nov 06, 2024 Billing Provider: JILLIAN MEDINA MD Common Visit Codes: NOT BILLABLE JILLIAN MEDINA MD Nov 06, 2024 19:51
[2024-11-07 14:17] LABS: Hepatitis A Total Antibody Positive (Negative)
[2024-11-07 14:18] LABS: Hepatitis B Surface Antigen Negative (Negative)
[2024-11-07 15:12] LABS: Hepatitis C Antibody Reactive (Negative)
== END 2024-11-06 10:12 | disposition left against medical advice (07) | DRG 720 ==
LOC: ER 19:31 → OVERFLOW 23:30
PROVIDERS: ATTEND Nurse Practitioner Adult Health
DX: A41.9 Sepsis, unspecified organism (principal); N17.9 Acute kidney failure, unspecified; B19.20 Unspecified viral hepatitis C without hepatic coma; F17.210 Nicotine dependence, cigarettes, uncomplicated; I10 Essential (primary) hypertension; L03.115 Cellulitis of right lower limb; S80.861A Insect bite (nonvenomous), right lower leg, initial encounter; W57.XXXA Bitten or stung by nonvenomous insect and other nonvenomous arthropods, initial encounter; Z20.822 Contact with and (suspected) exposure to COVID-19; Z53.29 Procedure and treatment not carried out because of patient's decision for other reasons; Y93.89 Activity, other specified; Y92.89 Other specified places as the place of occurrence of the external cause; Y99.8 Other external cause status
CPT/HCPCS: 36415; 71045; 76881; 80053; 80307; 81001; 83605; 83880; 84443; 85025; 86704; 86706; 86708; 86803; 87040; 87081; 87086; 87340; 87426; 87804; 96372; G0378; J0696; J2003; J2543